=== PATIENT | male | born 1970 | race Caucasian/White ===

== ENCOUNTER 2016-04-27 09:36 | Observation (INO) | payer OTHER ==
[~2016-04-27] VITALS: Ht 167.6 cm; Wt 88.0 kg
[2016-04-27] MEDS ORDERED: SODIUM CHLORIDE 0.9% FLUSH 5 ML FLUSH IVF PRN ×2 (09:45→12:45)
[2016-04-27 09:49] VITALS: BP 156/93; PULSE 62; RESP 16; TEMP 98.1; O2SAT 95
--- NOTE | 2016-04-27 09:57 | PD ---
HPI Chief Complaint: Chest Pain Time Seen by Provider: 09:44 Travel History International Travel<30 days: No Contact w/Intl Traveler<30days: No Traveled to known affect area: No History of Present Illness HPI 46-year-old male presents with chest pain that started this morning. He states that it went up into his jaw and down his left arm. It felt like a tightness. He states he also got sweaty and had tingling in his left arm. He denies prior history of this. He denies prior cardiac workup. He denies any active pain now. He states the episodes lasted a couple minutes and he had a couple episodes by the time he was [facility] but it resolved on its own. [facility] sent him [facility]. He denies recent cocaine use or alcohol use. He denies taking an aspirin yet today. He denies other concurrent complaints. [facility] Past Medical History Narrative Medical chronic low back pain, dyslipidemia, reflux Past Surgical History Surgical History: No Previous Surgery Family History Family History: htn Family Myocardial Infarction: No Social History Alcohol Use: No (no alcohol for multiple years) Tobacco Use: No Substance Use: No (no cocaine for multiple years) Allergies-Medications (Allergen,Severity, Reaction): Coded Allergies: No Known Allergies (Unverified , 04/27/16) Reported Meds & Prescriptions Reported Meds & Active Scripts Active No Active Prescriptions or Reported Medications Review of Systems Except as stated in HPI: all other systems reviewed are Neg Physical Exam Narrative GENERAL: Well-nourished, well-developed patient. SKIN: Warm and dry. HEAD: Normocephalic and atraumatic. EYES: No injection or drainage. ENT: No nasal drainage noted. NECK: Supple, trachea midline. CARDIOVASCULAR: Regular rate and rhythm RESPIRATORY: Breath sounds equal bilaterally. No accessory muscle use. GASTROINTESTINAL: Abdomen soft, non-tender, nondistended. EXTREMITIES: No edema. NEUROLOGICAL: Awake and alert. Motor and sensory grossly within normal limits. Normal speech. Data Data Last Documented VS Vital Signs Date Time Temp Pulse Resp B/P Pulse Ox O2 Delivery O2 Flow Rate FiO2 04/27/16 09:49 98.1 62 16 156/93 95 Orders Electrocardiogram (04/27/16 09:44) Ckmb (Isoenzyme) Profile (04/27/16 09:44) Complete Blood Count With Diff (04/27/16 09:44) Comprehensive Metabolic Panel (04/27/16 09:44) Magnesium (Mg) (04/27/16 09:44) Prothrombin Time / Inr (Pt) (04/27/16 09:44) Act Partial Throm Time (Ptt) (04/27/16 09:44) Troponin I (04/27/16 09:44) Chest, Single Ap (04/27/16 09:44) Ecg Monitoring (04/27/16 09:44) Bilateral Bp Monitoring (04/27/16 09:44) Iv Access Insert/Monitor (04/27/16 09:44) Oximetry (04/27/16 09:44) Sodium Chloride 0.9% Flush (Ns Flush) (04/27/16 09:45) Aspirin (Aspirin) (04/27/16 10:00) Drug Screen, Random Urine (04/27/16 09:50) CKMB (04/27/16 10:15) CKMB% (04/27/16 10:15) Admit Order (Ed Use Only) (04/27/16 11:28) Labs Laboratory Tests Test 04/27/16 04/27/16 10:15 10:27 White Blood Count 6.5 TH/MM3 Red Blood Count 5.10 MIL/MM3 Hemoglobin 15.3 GM/DL Hematocrit 45.0 % Mean Corpuscular Volume 88.2 FL Mean Corpuscular Hemoglobin 30.1 PG Mean Corpuscular Hemoglobin 34.1 % Concent Red Cell Distribution Width 13.4 % Platelet Count 171 TH/MM3 Mean Platelet Volume 9.9 FL Neutrophils (%) (Auto) 63.7 % Lymphocytes (%) (Auto) 26.2 % Monocytes (%) (Auto) 6.3 % Eosinophils (%) (Auto) 3.3 % Basophils (%) (Auto) 0.5 % Neutrophils # (Auto) 4.2 TH/MM3 Lymphocytes # (Auto) 1.7 TH/MM3 Monocytes # (Auto) 0.4 TH/MM3 Eosinophils # (Auto) 0.2 TH/MM3 Basophils # (Auto) 0.0 TH/MM3 CBC Comment DIFF FINAL Differential Comment Prothrombin Time 11.6 SEC Prothromb Time International 1.0 RATIO Ratio Activated Partial 24.2 SEC Thromboplast Time Sodium Level 142 MEQ/L Potassium Level 4.1 MEQ/L Chloride Level 106 MEQ/L Carbon Dioxide Level 28.6 MEQ/L Anion Gap 7 MEQ/L Blood Urea Nitrogen 14 MG/DL Creatinine 0.92 MG/DL Estimat Glomerular Filtration 88 ML/MIN Rate Random Glucose 96 MG/DL Calcium Level 9.1 MG/DL Magnesium Level 2.2 MG/DL Total Bilirubin 0.4 MG/DL Aspartate Amino Transf 16 U/L (AST/SGOT) Alanine Aminotransferase 38 U/L (ALT/SGPT) Alkaline Phosphatase 62 U/L Total Creatine Kinase 137 U/L Creatine Kinase MB 1.3 NG/ML Troponin I LESS THAN 0.02 NG/ML Total Protein 7.8 GM/DL Albumin 4.1 GM/DL Urine Opiates Screen NEG Urine Barbiturates Screen NEG Urine Amphetamines Screen NEG Urine Benzodiazepines Screen NEG Urine Cocaine Screen NEG Urine Cannabinoids Screen NEG MDM Medical Decision Making Medical Screen Exam Complete: Yes Emergency Medical Condition: Yes Medical Record Reviewed: Yes (past history confirmed) Interpretation(s) EKG from [facility] shows NSR, no ST elevation or depression, and no arrhythmias. No significant T-wave inversions. CBC & BMP Diagram 04/27/16 10:15 Last 24 hours Impressions Chest X-Ray 04/27/16 0944 Signed Impressions: Service Date/Time: Wednesday, April 27, 2016 09:42 - CONCLUSION: No acute disease. Kelby Velasquez MD Differential Diagnosis KS, angina, gastritis, musculoskeletal, anxiety.... Narrative Course Will check blood work, chest x-ray, EKG and dose with aspirin and reevaluate. Patient is pain-free so not in need of nitroglycerin. If initial testing is negative we'll place in observation in chest pain center Initial testing without emergent process, patient agrees to chest pain center observation Diagnosis Primary Impression: Chest pain Qualified Code: R07.9 - Chest pain, unspecified type Admitting Information Admitting Physician Requests: Observation Scripts No Active Prescriptions or Reported Meds Cecilia Wagner MD Apr 27, 2016 09:57
[2016-04-27] MEDS ORDERED: ASPIRIN 325 MG TAB PO ONE (10:00)
--- NOTE | 2016-04-27 10:16 | RADRPT ---
EXAM DATE/TIME: 04/27/2016 09:42 [facility] COMPARISON: No previous studies available for comparison. INDICATIONS : Chest pain since this morning. MEDICAL HISTORY : None. SURGICAL HISTORY : None. ENCOUNTER: Initial ACUITY: 1 day PAIN SCORE: 2/10 LOCATION: Bilateral chest FINDINGS: Lungs are clear. No pleural effusion is suspected. Cardiomediastinal contours are satisfactory. CONCLUSION: No acute disease. Kelby Velasquez MD on April 27, 2016 at 10:14 Board Certified Radiologist. This report was verified electronically.
[2016-04-27 10:35] LABS: AUTOMATED NEUTROPHIL # 4.2 TH/MM3 (1.8-7.7); BASOPHIL % 0.5 % (0.0-2.0); EOSINOPHIL # 0.2 TH/MM3 (0-0.4); EOSINOPHIL % 3.3 % (0.0-4.0); HEMO FLAGS DIFF FINAL; LYMPH % 26.2 % (9.0-44.0); LYMPHOCYTE # 1.7 TH/MM3 (1.0-4.8); MEAN CELL VOLUME 88.2 FL (80.0-100.0); MEAN CORPUSCULAR HEMOGLOBIN 30.1 PG (27.0-34.0); MEAN CORPUSCULAR HGB CONC 34.1 % (32.0-36.0); MONO % 6.3 % (0.0-8.0); NEUT % 63.7 % (16.0-70.0); PLATELET COUNT 171 TH/MM3 (150-450); RED CELL DISTRIBUTION WIDTH 13.4 % (11.6-17.2); WHITE BLOOD COUNT 6.5 TH/MM3 (4.0-11.0)
[2016-04-27 10:45] LABS: APTT (PATIENT) 24.2 SEC (24.3-30.1); PROTHROMBIN TIME - PATIENT 11.6 SEC (9.8-11.6)
[2016-04-27 10:53] LABS: AMPHETAMINE, URINE NEG (NEG); BARBITURATES, URINE NEG (NEG); COCAINE, URINE NEG (NEG)
[2016-04-27 10:54] LABS: ANION GAP 7 MEQ/L (5-15); AST (GOT) 16 U/L (15-37); BICARBONATE 28.6 MEQ/L (21.0-32.0); BLOOD UREA NITROGEN 14 MG/DL (7-18); CHLORIDE 106 MEQ/L (98-107); GLOMERULAR FILTRATION RATE 88 ML/MIN (>89); MAGNESIUM 2.2 MG/DL (1.5-2.5); POTASSIUM 4.1 MEQ/L (3.5-5.1); SODIUM (NA) 142 MEQ/L (136-145)
[2016-04-27 10:59] LABS: ALKALINE PHOSPHATASE 62 U/L (45-117); ALT (GPT) 38 U/L (12-78); CREATINE KINASE 137 U/L (39-308); TOTAL BILIRUBIN ADULT 0.4 MG/DL (0.2-1.0)
[2016-04-27 11:11] LABS: CKMB 1.3 NG/ML (0.5-3.6)
[2016-04-27 11:25] VITALS: BP 160/83; PULSE 72; RESP 16; O2SAT 97
--- NOTE | 2016-04-27 12:23 | EKG ---
Date Performed: 04/27/2016 Time Performed: 09:55:42 PTAGE: 46 years EKG: Sinus rhythm NORMAL ECG INTERPRETATION BASED ON A DEFAULT AGE OF 39 YEARS NO PREVIOUS TRACING DOCTOR: Nolberto Sanchez Interpretating Date/Time 04/27/2016 12:20:32
[2016-04-27] MEDS ORDERED: ONDANSETRON HCL 4 MG/2 ML VIAL IV PRN (12:45)
[2016-04-27] MEDS ORDERED: ACETAMINOPHEN/HYDROcodone 325 MG/7.5 MG TAB PO PRN (12:45)
[2016-04-27] MEDS ORDERED: ACETAMINOPHEN 500 MG CPLT PO PRN (12:45)
[2016-04-27 13:07] VITALS: O2SAT 95
--- NOTE | 2016-04-27 13:08 | HHI.DCPOC ---
Discharge Care Plan Diagnosis: (1) Chest pain Goals to Promote Your Health * To prevent worsening of your condition and complications * To maintain your health at the optimal level Directions to Meet Your Goals Take your medications as prescribed Follow your dietary instruction Follow activity as directed Keep your appointments as scheduled Take your immunizations and boosters as scheduled If your symptoms worsen call your PCP, if no PCP go to Urgent Care Center or Emergency Room Smoking is Dangerous to Your Health. Avoid second hand smoke Call the 24-hour hour crisis hotline for domestic abuse at Jorge Alberto Velazquez Apr 27, 2016 13:08
--- NOTE | 2016-04-27 13:24 | MH ---
cc: NIMO MURRIETA MD DATE OF ADMISSION: 04/27/2016 DATE OF : 1970 CHIEF COMPLAINT Chest pain and shortness of breath. HISTORY OF PRESENT ILLNESS This is a 46-year-old male who presented to the ED complaining of shortness of breath and chest discomfort that has been intermittent since yesterday. It lasts about 1-2 minutes when it occurs. No nausea or diaphoresis. It really has not been limiting him in his activities. He found nothing really in particular to bring on the discomforts. He denies a history of CAD. He cannot recall prior cardiac work-up. He denies any recent illness, denies any recent travel. PAST MEDICAL HISTORY Denies hypertension, hyperlipidemia, diabetes and CAD. FAMILY HISTORY Denies family history of CAD. SOCIAL HISTORY He quit smoking a years ago, but prior to that smoked about a half pack a day for 20 years or so. Denies alcohol or illicit drugs. States he used cocaine in past but has had no cocaine or alcohol in 3 years. PAST SURGICAL HISTORY Noncontributory. ALLERGIES No known drug allergies. MEDICATIONS Denies. REVIEW OF SYSTEMS GENERAL: Denies fevers or chills. Denies recent illnesses. HEENT: Denies headache, earache, sore throat, difficulty swallowing. CARDIOVASCULAR: Describes the discomfort as mentioned above. Denies diaphoresis. Denies sensation of heart beating rapidly or irregularly. Denies syncope. RESPIRATORY: He had been short of breath. No inspirational chest discomfort. Denies coughing, wheezing or hemoptysis. GASTROINTESTINAL: Denies nausea, vomiting, diarrhea, abdominal pain or blood in the stool. MUSCULOSKELETAL: Denies joint pain or edema. Denies calf pain or edema. NEUROVASCULAR: Denies headache or dizziness. ENDOCRINE: Denies polyuria or polydipsia. HEMATOLOGIC: Denies easy bruising. SKIN: Denies rash or itching. PHYSICAL EXAMINATION VITAL SIGNS: The vital signs in the emergency department initially included a blood pressure of 156/93, heart rate 62, respirations 16, pulse oximetry 95% on room air, and he was afebrile. GENERAL: The patient is seen in the examination room in no apparent distress. He is very pleasant. He speaks in clear and complete sentences. HEENT: Atraumatic, normocephalic. NECK: Supple without lymphadenopathy. Trachea is midline. No JVD or carotid bruits. CARDIOVASCULAR: Regular rate and rhythm without murmur, gallop or rub. PULMONARY: Lungs are clear to auscultation bilaterally. No wheezing, rales or rhonchi. No use of accessory muscles. ABDOMEN: Nontender, nondistended. Bowel sounds are normal. No guarding or rebound. No obvious pulsatile mass or bruit. No CVA tenderness. Strong femoral pulses bilaterally. EXTREMITIES: The patient is moving upper and lower extremities freely. No joint tenderness or edema. No calf tenderness or edema. No Homans sign. Strong pulses in the upper and lower extremities. NEUROLOGIC: The patient is alert and oriented. Cranial nerves II through XII are grossly intact. No focal deficits. Speech is clear. SKIN: No rashes. Turgor is normal. LABORATORY DATA CBC is unremarkable. Coagulation studies are unremarkable. Complete metabolic panel is unremarkable. The first set of cardiac enzymes are normal. Toxicology screen was obtained in the ER and negative. IMAGING DATA A single-view chest x-ray read by the radiologist as no acute disease. EKG DATA EKG has sinus rhythm without significant ST segment depression or elevation. ASSESSMENT AND PLAN 1. Atypical chest pain: The patient has had first of cardiac enzymes and EKG and has been seen by Dr. Nimo Murrieta of cardiology in the chest pain center. At this time he will have a [place] protocol ETT and if that were to be unremarkable he will likely discharged home with instructions to [facility]. 2. The patient is stable at this time. He is agreeable to this plan. Dictated by: Jorge Alberto Velazquez PA-C MD ESTELA Benton/CARMEL /12:45 PM /1:17 PM
[2016-04-27 14:10] VITALS: BP 172/86
--- NOTE | 2016-04-27 15:36 | TR ---
Date Performed: 04/27/2016 Time Performed: 12:49:02 DOCTOR: Jaron Murrieta DRUG LIST: CLINICAL HISTORY: REASON FOR TEST: Chest pain REASON FOR ENDING: OBSERVATION: CONCLUSION: LIYAH PROTOCOL. NO CP OR SOB. TEST STOPPED AFTER EXCEEDING GOAL HR SECONDARY TO LEG FATIGUE.Maximum DP=716 % Max HR Achieved=88.0% Maximum BY=307/88 Total Exercise Time=7:16 COMMENTS: Patient exercised using the Liyah protocol. No electrocardiographic changes were seen to suggest ischemia. Hemodynamic response to exercise was normal. No significant arrhythmia was prese nt.
[2016-04-27] MEDS ORDERED: SODIUM CHLORIDE 0.9% FLUSH 5 ML FLUSH IVF SCH (21:00)
== END 2016-04-27 18:18 | disposition home or self-care (01) ==
LOC: EDBD → NEDAMB 09:36 → NEDA 11:29
PROVIDERS: ADMIT Internal Medicine Cardiovascular Disease; ATTEND Internal Medicine Cardiovascular Disease
DX: R07.9 Chest pain, unspecified (principal); R20.2 Paresthesia of skin; K21.9 Gastro-esophageal reflux disease without esophagitis; E78.5 Hyperlipidemia, unspecified; M54.5 Low back pain; G89.29 Other chronic pain; R06.02 Shortness of breath
CPT/HCPCS: 71010; 80053; 80307; 82550; 82552; 83735; 84484; 85025; 85610; 85730; 93005; 93017; 99285; G0378